=== PATIENT | female | born 1950 ===

== ENCOUNTER → 2022-02-20 11:01 | Outpatient (CLI) | payer MEDICARE, OTHER, SELFPAY ==
--- NOTE | ~2022-02-20 | MR_ITS ---
EXAMINATION: MR knee RT wo con DATE: 02/20/2022 12:17 INDICATION: Medial right knee pain x2 months. TECHNIQUE: Magnetic resonance imaging (MRI) of the right knee was performed without intravenous contr ast. Sequences included axial PD-weighted FS FSE, coronal PD-weighted FSE and PD-weighted FS FSE, sag ittal PD-weighted FSE, and sagittal T2-weighted FS FSE. COMPARISON: None. FINDINGS: Medial compartment: Oblique undersurface tear at the junction of the posterior horn and body of the medial meniscus, with a small flap of meniscal tissue extending toward the lateral recess. Moderate diffuse thinning of ca rtilage and mild osteophytosis. Lateral compartment: Meniscus intact. Moderate diffuse thinning of cartilage and mild osteophytosis. Patellofemoral compartment: Mild cartilage thinning. Retinacula intact. Ligaments and tendons: Minimal abnormal signal superficial and deep to the fibers of the MCL. ACL, PCL, and LCL are intact. The flexor and extensor tendons are intact. Mild abnormal signal deep to the fibers of the pes anseri ne tendons. Fluid: No significant knee joint effusion. Trace Kimble's cyst. Osseous/other: No focal or diffuse abnormal marrow signal. IMPRESSION: 1. Oblique undersurface tear at the junction of the posterior and body of the medial meniscus. 2. Mild partial tear of the MCL. 3. Pes anserine bursitis. Reviewed, dictated and finalized at location K. IMPRESSION: 1. Oblique undersurface tear at the junction of the posterior and body of the m edial meniscus. 2. Mild partial tear of the MCL. 3. Pes anserine bursitis.
== END ==
PROVIDERS: PCP Family Medicine; Visit Provider Family Medicine
DX: M25.561 Pain in right knee (principal); M17.11 Unilateral primary osteoarthritis, right knee; S83.241A Other tear of medial meniscus, current injury, right knee, initial encounter; S83.411A Sprain of medial collateral ligament of right knee, initial encounter; M71.561 Other bursitis, not elsewhere classified, right knee
CPT/HCPCS: 73721